=== PATIENT | female | born 1955 | race Caucasian/White ===

== ENCOUNTER → 2017-02-15 | Outpatient (CLI) | payer OTHER | LOC: KOH-I 11:59 | DX: M25.552 Pain in left hip (principal) | CPT/HCPCS: 73502 ==

== ENCOUNTER → 2017-03-02 | Outpatient (CLI) | payer OTHER | LOC: US 14:58 | DX: R10.30 Lower abdominal pain, unspecified (principal) | CPT/HCPCS: 93971 ==

== ENCOUNTER → 2017-03-27 | Outpatient (CLI) | payer OTHER | LOC: KOH-I 03-16 10:00 | DX: R07.9 Chest pain, unspecified (principal); I85.00 Esophageal varices without bleeding; F17.210 Nicotine dependence, cigarettes, uncomplicated; R91.8 Other nonspecific abnormal finding of lung field | CPT/HCPCS: 71250 ==

== ENCOUNTER → 2021-07-01 | Outpatient (CLI) | payer OTHER | LOC: KOH-I 09:17 | DX: Z12.2 Encounter for screening for malignant neoplasm of respiratory organs (principal); F17.210 Nicotine dependence, cigarettes, uncomplicated | CPT/HCPCS: 71271 ==

== ENCOUNTER → 2022-07-11 | Outpatient (CLI) | payer OTHER | LOC: KOH-I 11:00 | DX: F17.210 Nicotine dependence, cigarettes, uncomplicated (principal) | CPT/HCPCS: 71271 ==